=== PATIENT | female | born 1955 | race African-American/Black ===

== ENCOUNTER → 2016-08-09 | Outpatient (CLI) | payer OTHER ==
[~2016-08-09] MED LIST: FERROUS GLUCON325 M1 PO; GLUCOSAMINE500 M1 PO; GREEN TEA1 CAP PO; MOBIC15 MG PO; MULTIVITAMIN1 UDCAP PO; NEXIUM PO; VICODIN PO; ZOLOFT50 MG PO
--- NOTE | ~2016-08-09 | MY11 ---
[facility] A Service of [facility] RADIOLOGY TEXT RESULTS PATIENT: CONI SALINAS LOCATION: [facility] : 55 UNIT #: [id number] AGE: [address]: Jose Kiran MD SEX: F ORDER DR: [id number] [facility] [address] 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 Referring Physician: Jose Kiran M.D. Ordering Physician: Jose Kiran M.D. Primary Care Physician: Jose Kiran M.D. MEDICAL IMAGING REPORT This report is preliminary unless electronic signature is present EXAM Mild digital screening mammogram with CAD DATE: 08/09/2016 HISTORY 60-year-old female with no documented personal or family history of breast cancer or current complaints. COMPARISON Bilateral digital screening mammogram 08/28/2015, 08/05/2014, 07/31/2013. FINDINGS CC and MLO views were obtained of each breast utilizing digital technique and reviewed with an FDA-approved CAD device. Scattered fibroglandular densities are present bilaterally. The parenchymal pattern appears stable. No new or enlarging nodules are identified. Benign vascular calcifications are present bilaterally. No suspicious clustered microcalcifications are seen. Benign appearing lymph nodes in the posterior superior aspect of each breast and the axillary regions appear stable. IMPRESSION BIRADS category 2. Benign findings. Routine bilateral screening mammogram is recommended in one year. Patients over the age of 40 are entered into a reminder system with target due date for the next mammogram. A result letter will also be sent to the patient. BIRADS: 2 - benign findings [facility] A Service of [facility] RADIOLOGY TEXT RESULTS PATIENT: CONI SALINAS LOCATION: [facility] : 55 UNIT #: [id number] AGE: [address]: Jose Kiran MD SEX: F ORDER DR: Dictated by... Delmis De Dios M.D. THIS IS AN ELECTRONICALLY VERIFIED REPORT Delmis De Dios M.D. at 08/12/2016 8:30 AM FARRAH/shyam TD: 08/09/2016 14:29 JOB #: [id number] MEDICAL IMAGING REPORT Page 1 of 1 COPY
== END | disposition home or self-care (01) ==
LOC: CWCC 11:31
DX: Z12.31 Encounter for screening mammogram for malignant neoplasm of breast (principal)
CPT/HCPCS: G0202